=== PATIENT | male | born 1945 | race Hispanic/Latino ===

== ENCOUNTER → 2018-07-09 | Outpatient (CLI) | payer OTHER ==
[~2018-07-09] VITALS: Ht 162.6 cm; Wt 69.4 kg
[~2018-07-09] MED LIST: AMLO10TA6 PO; ASPI-555 PO; ATOR-2 PO; CARV25TA PO; FERR-82 PO; GLIP10TA9 PO; ISOS60TA4 PO; LISI40TA4 PO; METF-446 PO; REGADENOSON 0.4 MG/5 ML PF SYG IVP SCH; SPIR25TA6 PO; TAMS0.4C32 PO
== END | disposition home or self-care (01) ==
LOC: SHCH 09:04
PROVIDERS: ATTEND Internal Medicine Cardiovascular Disease
DX: R06.09 Other forms of dyspnea (principal); N40.0 Benign prostatic hyperplasia without lower urinary tract symptoms; I12.0 Hypertensive chronic kidney disease with stage 5 chronic kidney disease or end stage renal disease; E11.22 Type 2 diabetes mellitus with diabetic chronic kidney disease; N18.6 End stage renal disease; E78.5 Hyperlipidemia, unspecified; I25.119 Atherosclerotic heart disease of native coronary artery with unspecified angina pectoris
CPT/HCPCS: 78452; 93017; 96374; A9500 ×2; J2785

== ENCOUNTER → 2018-07-17 | Outpatient (CLI) | payer OTHER ==
[~2018-07-17] MED LIST changes: -REGADENOSON 0.4 MG/5 ML PF SYG IVP SCH
== END | disposition home or self-care (01) ==
LOC: SHCH 10:47
PROVIDERS: ATTEND Internal Medicine Cardiovascular Disease
DX: I35.8 Other nonrheumatic aortic valve disorders (principal); I51.7 Cardiomegaly; I20.9 Angina pectoris, unspecified; E11.9 Type 2 diabetes mellitus without complications
CPT/HCPCS: 93306